=== PATIENT | female | born 1945 | race American Indian/Alaskan Native ===

== ENCOUNTER 2019-12-19 07:19 | Day surgery (SDC) | payer MEDICARE ==
[2019-12-19 08:34] LABS: Basophils % (Auto) 0.6 % (0.0-1.8); Eosinophils # (Auto) 0.1 K/mm3 (0.0-0.4); Eosinophils % (Auto) 1.8 % (0.0-4.3); Hemoglobin 12.3 gm/dl (10.1-14.3); Lymphocytes # (Auto) 1.6 K/mm3 (1.2-5.4); Lymphocytes % (Auto) 33.1 % (13.4-35.0); Mean Corpuscular HGB Conc 33 % (30-34); Mean Corpuscular Volume 87 fl (79-97); Monocytes # (Auto) 0.3 K/mm3 (0.0-0.8); Monocytes % (Auto) 6.9 % (0.0-7.3); Platelet Count 240 K/mm3 (140-440); Red Blood Count 4.23 M/mm3 (3.65-5.03)
[2019-12-19 08:41] LABS: INR 1.01 (0.87-1.13)
[2019-12-19 08:42] LABS: Partial Thromboplastin Time 24.1 Sec. (24.2-36.6)
[2019-12-19 08:48] LABS: BUN/Creatinine Ratio 14; Blood Urea Nitrogen 14 mg/dL (7-17); Calcium 9.7 mg/dL (8.4-10.2); Hemolysis Index 1
[2019-12-19] MEDS: SODIUM CHLORIDE 0.9% 500 ML 500 ML IV SCH ×2 (09:24→10:01)
[2019-12-19] MEDS ORDERED: HEPARIN/NS 5000 UNIT/500ML 1,000 ML IR ONE (09:26)
[2019-12-19] MEDS: VERAPAMIL 5 MG/2 ML INJ ONE ×2 (09:59→10:11)
[2019-12-19] MEDS: LIDOCAINE (2%) 20 MG/1 ML VIAL 20 ML MDV INFILTRATI ONE ×2 (09:59→10:09)
[2019-12-19] MEDS: MIDAZOLAM 2 MG/2 ML INJ ONE ×2 (09:59→10:07)
[2019-12-19] MEDS: fentaNYL 100 MCG/2 ML INJ ONE ×2 (09:59→10:07)
[2019-12-19] MEDS ORDERED: ASPIRIN 81 MG TAB CHEW PO SCH (10:00)
[2019-12-19] MEDS: HEPARIN 10,000 UNITS/10 ML VIAL ONE ×2 (10:00→10:11)
[2019-12-19] MEDS: NITROGLYCERIN SYRINGE 3 ML ONE ×2 (10:01→10:11)
[2019-12-19] MEDS ORDERED: traMADol 50 MG TAB PO PRN (11:00)
[2019-12-19] MEDS ORDERED: HYDROcodone/ACETAMINOPHEN 5-325 MG TAB PO PRN (11:00)
--- NOTE | 2019-12-19 11:01 | Short Stay Summary ---
Short Stay Documentation Date of service: 12/19/19 - History H&P: obtained from office - Allergies and Medications Current Medications: Allergies No Known Allergies Allergy (Verified 12/19/19 08:27) Home Medications Medication Instructions Recorded Confirmed Last Taken Type Ascorbic Acid [Vitamin C] 500 mg PO DAILY 12/19/19 12/19/19 12/18/19 History 500 mg Aspirin EC [Halfprin EC] 81 mg PO DAILY 12/19/19 12/19/19 12/18/19 History 81 mg Calcium Carbonate [[id number]] 500 mg PO DAILY 12/19/19 12/19/19 12/18/19 History 500 mg Doxazosin Mesylate [Cardura Xl] 4 mg PO DAILY 12/19/19 12/19/19 12/18/19 History 4 mg Latanoprost 0.005% 2 drops OU BID 12/19/19 12/19/19 12/18/19 History 2 Losartan [Cozaar] 100 mg PO DAILY 12/19/19 12/19/19 12/18/19 History 100 mg Montelukast [Singulair] 10 mg PO DAILY 12/19/19 12/19/19 12/18/19 History 10 mg Lisman-3/Dha/Epa/Fish Oil [Lisman 3 1 cap PO DAILY 12/19/19 12/19/19 12/18/19 History 500 Softgel] 1 Pantoprazole [Protonix TAB] 40 mg PO DAILY 12/19/19 12/19/19 12/18/19 History 40 mg Pravastatin [Pravachol] 40 mg PO DAILY 12/19/19 12/19/19 12/18/19 History 40 mg Timolol Maleate [Istalol] 0.5 mcg OU BID 12/19/19 12/19/19 12/18/19 History 0.5 dilTIAZem HCl [Diltiazem 24Hr ER 180 mg PO BID 12/19/19 12/19/19 12/18/19 History (Cd)] 180 mg Active Medications Hydrocodone Bitart/Acetaminophen (Farina 5/325) 1 each PO Q4H PRN PRN Reason: Pain, Moderate (4-6) Aspirin (Baby Aspirin) 81 mg PO QDAY BASIM Last Admin: 12/19/19 09:17 Dose: 81 mg Documented by: Sodium Chloride (Nacl 0.9% 500 Ml) 500 mls @ 50 mls/hr IV DIRECT BASIM Stop: 12/19/19 18:59 Last Admin: 12/19/19 10:01 Dose: 50 mls/hr Documented by: Tramadol HCl (Ultram) 50 mg PO Q4H PRN PRN Reason: Pain, Mild (1-3) - Brief post op/procedure progress note Date of procedure: 12/19/19 Pre-op diagnosis: chest pain Post-op diagnosis: same Procedure: [facility] - see dictated cath report Anesthesia: local Estimated blood loss: none Condition: stable - Disposition Condition at discharge: Good Disposition: [id number] TO HOME OR SELFCARE - Discharge Diagnoses (1) Normal coronary angiogram Status: Chronic (2) HTN (hypertension) Status: Chronic (3) Hyperlipidemia Status: Chronic (4) Diabetes Status: Chronic (5) Obesity Status: Chronic (6) Sleep apnea Status: Chronic Short Stay Discharge Plan Activity: advance as tolerated Diet: low fat, low cholesterol, low salt, diabetic Wound: open to air, keep clean and dry, per your surgeon's advice Follow up with: SULEIMAN SMITH MD [Primary Care Provider] - 7 Days RULA LEVIN MD [Staff Physician] - 7 Days
--- NOTE | 2019-12-19 11:34 | Cardiac Catherization Report ---
ORDERING PHYSICIAN: Dr. Tobar. BEING DONE BY: Dr. Johnson. This is a 74-year-old obese, hypertension, hyperlipidemia, prediabetic, has persistent shortness of breath with exertion, here for left heart catheterization. The patient was done with moderate sedation started at 10:07, finished at 10:21, which was 14 minutes of moderate sedation. Left heart catheterization performed via the right radial artery, sterile technique, local anesthesia, 6-Cypriot radial sheath inserted. Left system engaged with a JL3.5 catheter. Left main is large and short. It is normal. LAD is a large caliber vessel, patent. Diagonal 1, diagonal 2 are small caliber vessel, patent. Circumflex is a large caliber vessel, patent. OM1 is a small caliber vessel. OM2 medium caliber vessel, patent. RCA engaged with 3RDC catheter, is a large dominant vessel, is patent from proximally and distally. PDA, PLV are small to medium caliber vessel, patent. LV gram done in YAKUT and DE JESUS view shows normal LV function, LVEDP 18 mmHg, LV is 145, aortic is 145/76. There is no gradient across the aortic valve on pullback. 5-Cypriot catheters all taken over a guidewire, 6-Cypriot radial sheath was discontinued. Radial band applied. No hematoma, no bleeding. SUMMARY: Normal coronaries, right dominant system, normal LV function. Continue medical management and risk factors. Discussed this in detail with the patient and patient's family. JOB# [id number] CYNTHIA/WLILIAN
[2019-12-19 15:43] VITALS: BP 121/79
== END 2019-12-19 14:20 | disposition home or self-care (01) ==
LOC: CATHLABREC 07:19 → CATH 07:19 → CATHLABREC 14:20
PROVIDERS: ATTEND Internal Medicine
DX: R06.02 Shortness of breath (principal); I10 Essential (primary) hypertension; E78.5 Hyperlipidemia, unspecified; E66.9 Obesity, unspecified; E11.9 Type 2 diabetes mellitus without complications; G47.30 Sleep apnea, unspecified; Z79.899 Other long term (current) drug therapy; Z85.038 Personal history of other malignant neoplasm of large intestine; Z68.37 Body mass index [BMI] 37.0-37.9, adult; Z90.710 Acquired absence of both cervix and uterus; Z72.89 Other problems related to lifestyle; Z83.3 Family history of diabetes mellitus; Z85.54 Personal history of malignant neoplasm of ureter; Z80.0 Family history of malignant neoplasm of digestive organs; Z82.49 Family history of ischemic heart disease and other diseases of the circulatory system
CPT/HCPCS: 36415; 80048; 85025; 85610; 85730; 93005; 93458; 99156; C1894; J1644; J2250; J3010; J7040; Q9967